=== PATIENT | female | born 1985 | race Caucasian/White ===

== ENCOUNTER 2019-05-13 00:13 | Outpatient (CLI) | payer MEDICAID ==
[~2019-05-13] VITALS: Ht 167.6 cm; Wt 102.1 kg
[2019-05-13 01:07] VITALS: Ht 167.6 cm; Wt 102.1 kg
[2019-05-13] MEDS ORDERED: ACET500T68 PO (01:12)
[2019-05-13] MEDS ORDERED: PREN-127 PO (01:12)
[2019-05-13] MEDS ORDERED: DIPH-741 PO (01:12)
[2019-05-13] MEDS ORDERED: NIFEdipine 10 MG CAP PO PRN (02:00)
== END 2019-05-13 02:03 | disposition home or self-care (01) ==
LOC: UNDOADMOB 00:13 → L&D 00:13 → OB 00:13 → L&D 02:03 → UNDODISOB 02:03 → EDSTATUS 05-14 19:57
PROVIDERS: ATTEND Obstetrics & Gynecology
DX: O46.93 Antepartum hemorrhage, unspecified, third trimester (principal); Z3A.33 33 weeks gestation of pregnancy
CPT/HCPCS: 99213; G0378; G0379

== ENCOUNTER 2019-06-04 04:36 | Inpatient (IN) | payer MEDICAID ==
[2019-06-04] VITALS (21 sets, daily range): BP systolic 101–119; BP diastolic 52–90; Ht 167.6 cm; Wt 101.2 kg
[~2019-06-04] VITALS: Ht 167.6 cm; Wt 101.2 kg
[~2019-06-04 04:36] MED LIST: ACET500T68 PO; DIPH-741 PO; PREN-127 PO
[2019-06-04] MEDS ORDERED: FAMOTIDINE 20 MG/50 ML PREMIX IVPB ONE (04:45)
[2019-06-04] MEDS ORDERED: cefOXitin/DEX(*) 2GM/50ML PREM 50 ML IVPB ONE (04:45)
[2019-06-04] MEDS ORDERED: ONDANSETRON 4 MG/2 ML VIAL ONE (05:24)
[2019-06-04] MEDS ORDERED: fentaNYL CITR 100 MCG/2 ML AMP ONE (05:24)
[2019-06-04] MEDS ORDERED: DEXAMETHASONE SOD 4 MG/ML VIAL ONE (05:24)
[2019-06-04] MEDS ORDERED: MORPHINE PF 5 MG/10 ML AMP ONE (05:24)
[2019-06-04] MEDS ORDERED: OXYTOCIN 10 UNIT/ML SDV ONE ×2 (05:24→07:33)
[2019-06-04] MEDS: LR(*) 1000 ML BAG 1,000 ML IV SCH ×3 (05:32→11:09)
--- NOTE | 2019-06-04 05:36 | Anesthesia OB Pre-Anes Eval ---
History of Present Illness Anesthesia Start Date: Jun 04, 2019 Anesthesia Start Time: 05:12 OB Anesthesia Diagnosis: primary c/section (for placenta previa), other Current Complication: obesity, other (, pre term labor received betamethasone, and procardia - last dose 06/03 at 2300) Complications: none known EDC: Jun 25, 2019 : 5 Para: 4 Vital Signs: Hematology Test 06/04/19 04:57 White Blood Count 9.8 k/uL (4.5-11.0) Red Blood Count 4.50 M/uL (4.17-5.56) Hemoglobin 14.0 g/dL (12.0-16.0) Hematocrit 40.3 % (34.0-47.0) Mean Corpuscular Volume 89.5 fL (80.0-96.0) Mean Corpuscular Hemoglobin 31.2 pg (26.0-33.0) Mean Corpuscular Hemoglobin Concent 34.8 g/dL (32.0-36.0) Red Cell Distribution Width 14.1 % (11.5-14.5) Platelet Count 191 K/uL (150-450) Mean Platelet Volume 8.9 fL (7.2-11.1) Neutrophils (%) (Auto) 68.3 % (39.4-72.5) Lymphocytes (%) (Auto) 20.2 % (17.6-49.6) Monocytes (%) (Auto) 10.2 % (4.1-12.4) Eosinophils (%) (Auto) 1.1 % (0.4-6.7) Basophils (%) (Auto) 0.2 % (0.3-1.4) L Nucleated RBC Relative Count (auto) 0.1 /100WBC Neutrophils # (Auto) 6.7 K/uL (2.0-7.4) Lymphocytes # (Auto) 2.0 K/uL (1.3-3.6) Monocytes # (Auto) 1.0 K/uL (0.3-1.0) Eosinophils # (Auto) 0.1 K/uL (0.0-0.5) Basophils # (Auto) 0.0 K/uL (0.0-0.1) Nucleated RBC Absolute Count (auto) 0.01 K/uL Serology Test 06/04/19 04:57 HIV (1&2) Antibody Negative (NEGATIVE) Epidural anesthesia risks, complications and benefits explained to patient's satisfaction for labor and vaginal delivery and/or section.122/77 76 17, 95% Pain Ratin (Not in labor) Heart Tones: 138 Height (Inches): 66 Weight (Pounds): 225 BMI (kg/m2): 36 Type and screen done GBS negative Past Medical History Medical History: obesity Surgical History: no surgical history Previous Anesthesia: epidural Attended Childbirth Classes?: No Hx Anesthesia Reactions: No Hx Family Anesthesia Reaction: No Home Meds Reported Medications Diphenhydramine Hcl (BENADRYL ALLERGY) 25 Mg Tablet, 25 MG PO Q6-8H, TAB 05/13/19 Acetaminophen (TYLENOL EXTRA STRENGTH) 500 Mg Tablet, 500 MG PO, TAB 05/13/19 Vits W-Ca,Fe,Fa(<1MG) ( VITAMINS) 1 Each Tablet, 1 EACH PO DAILY, TAB 05/13/19 Allergies: Coded Allergies: latex (Verified Allergy, Mild, hives, 06/04/19) Anesthesia OB ROS Neurological: No migraines/headaches, No seizures, No neuropathy, No other Eyes ROS: contacts out ENT: Loose teeth, Chipped teeth, Other (carious and many missing teeth) Pulmonary: smoker (pks/day/yrs) (1/2 ppd x 20 yrs.) Airway Class: ll Cardiovascular ROS: No edema, No arrhythmia, No other GI ROS: NPO Last Solids Date: Jun 03, 2019 Last Solids Time: 21:00 ROS: No Herpes, No STD(s), No Liver Disease, No Renal Disease, No Other Endocrine ROS: No diabetes, No gestational diabetes, No thyroid disorder, No o ther Musculoskeletal ROS: No low back pain, No low back injury, No scoliosis, No other ASA Classification: 2 Assessment and Plan Anesthesia Plan: SAB (with intrathecal narcotics) Assessment: Calm attentive female w German ZHENG, in room for counseling and consent. Questions entertained and answered. Signs of infection and post puncture headache and itching emphasized. KARLENE CARLSON CRNA Jun 04, 2019 05:36
[2019-06-04 05:52] LABS: PLATELET COUNT, AUTOMATED 191 K/uL (150-450)
[2019-06-04] MEDS ORDERED: NS(*) 0.9% 1000 ML BAG 1,000 ML ONE (06:47)
[2019-06-04] MEDS ORDERED: KETOROLAC 30 MG/ML VIAL ONE (07:13)
[2019-06-04] MEDS ORDERED: diphenhydrAMINE 50 MG/ML VIAL ONE (07:27)
[2019-06-04] MEDS ORDERED: MIDAZOLAM 2 MG/2 ML VIAL ONE (07:29)
[2019-06-04] MEDS ORDERED: OXYTOCIN 30 UNIT/NS 500 ML 500 ML IV PRN (08:29)
[2019-06-04] MEDS ORDERED: ACETAMINOPHEN 325 MG TAB PO PRN (08:30)
[2019-06-04] MEDS ORDERED: SIMETHICONE 80 MG CHEW CHEW PRN (08:30)
[2019-06-04] MEDS ORDERED: LANOLIN OINT 7 GM TUBE TP PRN (08:30)
[2019-06-04] MEDS ORDERED: INFLUENZA VIRUS VAC 0.5ML SYR IM ONE (08:30)
[2019-06-04] MEDS ORDERED: PROMETHAZINE 25 MG/ML 1 ML AMP IVP PRN (08:30)
[2019-06-04] MEDS ORDERED: ONDANSETRON 4 MG/2 ML VIAL IV PRN (08:30)
[2019-06-04] MEDS ORDERED: ZOLPIDEM TARTRATE 5 MG TAB PO PRN (08:30)
--- NOTE | 2019-06-04 08:43 | History & Physical ---
History of Present Illness Age of Patient: 33 : 5 Para or TPAL: 4 EDC per LMP: Jun 25, 2019 Estimated Gestational Age: 37.0 Chief Complaint History of Present Illness Presents at 37.0 weeks for scheduled due to anterior placenta previa. I have been following Jessica closely for anterior complete placenta previa discovered initially at her 20 week u/s and persisted through term. She had consultation with OBX who confirmed and steroids administered at 34 weeks. She didn't ever get bleeding prior to delivery. Plan made for delivery at 37 weeks. She is a smoker and has continued to smoke through . After arrival and while prepping pt reports her water broke and we confirmed bloody fluid. Past Medical, Surgical, Family and Obstetric Histories reviewed. Please see ACOG chart. History Allergies: Coded Allergies: latex (Verified Allergy, Mild, hives, 06/04/19) Med Rec Home Meds Reported Medications Diphenhydramine Hcl (BENADRYL ALLERGY) 25 Mg Tablet, 25 MG PO Q6-8H, TAB 05/13/19 Acetaminophen (TYLENOL EXTRA STRENGTH) 500 Mg Tablet, 500 MG PO, TAB 05/13/19 Vits W-Ca,Fe,Fa(<1MG) ( VITAMINS) 1 Each Tablet, 1 EACH PO DAILY, TAB 05/13/19 Review of Systems All Systems Reviewed/Normal: Yes, Except as Noted Exam General Exam Vital Signs Vital Signs Date Time Temp Pulse Resp B/P (MAP) Pulse Ox O2 Delivery O2 Flow Rate FiO2 06/04/19 05:00 97.8 66 16 117/55 (75) 95 Room Air General Apperance: Alert/Awake/No Acute Distress Neuro: No Gross deficits Cardiovascular: Regular Rate and Rhythm Respiratory: No Respiratory Distress Abdomen: Soft, Non-Tender, Non-Distended Integumentary: Skin Intact without Lesions or Rash Psychological: Alert & Oriented X3, Appropriate Mood & Affect Vaginal Discharge/Fluid?: Bloody Fluid Fetus Heart Tone Variabilty: Moderate FHT Accelerations: 15X15 FHT Category: I Medical Decision Making Data Points Result Diagram: 06/04/19 0457 VTE Prophylasis: Adult Deep Vein Thrombosis/Pulmonary: No Pharmacological Contraindicati: Pt at Low Risk for VTE Mechanical Contraindications: Pt at Low Risk for VTE Assessment and Plan Problems: (1) Tobacco smoking affecting in third trimester Assessment & Plan: Nicotine patch while inpt. (2) Placenta previa antepartum in third trimester Assessment & Plan: as planned. I presented immediately for earlier delivery. (3) 37 weeks gestation of ALFREDO QUEVEDO MD Jun 04, 2019 08:43
--- NOTE | 2019-06-04 08:53 | Post Operative Note ---
Operative Note - [facility] Operative Day Date: Jun 04, 2019 Time: 08:44 Physicians Surgeon: Lianne Anesthesia: Spinal Diagnosis Pre-Op Diagnosis: Anterior placenta previa 37 weeks smoker Post-Op Diagnosis: same Procedure Findings: rupured membranes Procedure(s): Primary LTCS Specimen Removed:(Maybe N/A): placenta Complications: blood loss [id number] Fluids Fluids: 3500 ml Estimated Blood Loss: 1500 ml Dictated Date OP Note Dictated: Jun 04, 2019 Time OP Note Dictated: 08:45 Copies to: ALFREDO QUEVEDO MD ; ALFREDO QEUVEDO MD Jun 04, 2019 08:53
[2019-06-04] MEDS: DLR(*) 1000 ML BAG 1,000 ML IV PRN ×2 (09:30→18:12)
[2019-06-04] MEDS ORDERED: fentaNYL CITR 100 MCG/2 ML AMP IT PRN (09:50)
[2019-06-04] MEDS ORDERED: FENTANYL/ROPIVACAINE 100 ML BAG EPI PRN (09:50)
[2019-06-04] MEDS ORDERED: NALOXONE HCL 0.4 MG/ML VIAL IV PRN (09:50)
[2019-06-04] MEDS ORDERED: NALBUPHINE HCL 10 MG/ML AMP IVP PRN (09:50)
[2019-06-04] MEDS ORDERED: BUPIVACAINE 0.25% MPF INJ EPI PRN (09:50)
[2019-06-04] MEDS ORDERED: diphenhydrAMINE 50 MG/ML VIAL IV PRN (09:50)
[2019-06-04] MEDS ORDERED: LIDO/EPI 2% MPF 1:200,000 20ML EPI PRN (09:50)
[2019-06-04] MEDS ORDERED: LIDOCAINE/PF 2% 200MG/10ML AMP 200 MG/10 ML AMPUL EPI PRN (09:50)
[2019-06-04] MEDS: NICOTINE 14 MG/24 HR PATCH TD SCH (10:12)
[2019-06-04] MEDS: FAMOTIDINE 20 MG TAB PO SCH ×2 (10:12→20:19)
[2019-06-04] MEDS: DOCUSATE CALCIUM 240 MG CAP PO SCH ×2 (10:12→20:20)
[2019-06-04] MEDS ORDERED: LR(*) 1000 ML BAG 1,000 ML IV PRN (11:00)
--- NOTE | 2019-06-04 12:37 | OPERATIVE REPORT 1 ---
EVENT DATE: June 04, 2019 SURGEON: Kelton Abdalla MD ANESTHESIOLOGIST: Stacie Fu CRNA ANESTHESIA: Spinal. PREOPERATIVE DIAGNOSES 1. 37-week intrauterine . 2. Complete anterior placenta previa. 3. Smoker during . POSTOPERATIVE DIAGNOSES 1. 37-week intrauterine . 2. Complete anterior placenta previa. 3. Smoker during . 4. Premature rupture of membranes. PROCEDURE PERFORMED Primary low transverse section via Pfannenstiel skin incision. ESTIMATED BLOOD LOSS 1500 cc. FLUIDS 3500 cc IV crystalloid. URINE OUTPUT Clear. INDICATIONS Jessica is in her fifth at 37 weeks. We have been following her closely for an anterior complete placenta previa confirmed via multiple ultrasound examinations, although she did not suffer any bleeding through the . She received steroids at 34 weeks and was scheduled for delivery at 37. She presented for delivery today as a scheduled section. While she was here in the hospital being prepped for surgery her membranes spontaneously ruptured with bloody fluid visible. We, therefore, proceeded more rapidly for her . DESCRIPTION OF PROCEDURE She was brought to the operating room with a working IV and placed in the dorsal supine position. After spinal anesthesia was placed, she was moved to a leftward tilt and prepped and draped in the usual sterile fashion. Using a knife, a Pfannenstiel skin incision was made and carried through to the underlying rectus fascia. This was nicked in the midline and extended laterally. Rectus muscles were in the midline and the abdominal cavity was entered sharply through the peritoneum. This was extended using blunt lateral traction and a bladder blade was inserted. Attempts were initially made for elevating the vesicouterine peritoneum and creating a bladder flap but the lower uterine segment had not developed very well, mostly because of this thickened anterior wall due to the placenta. I, therefore, decided just to make an incision straight from there without dissecting down the bladder as I was palpably well above the bladder. Using a knife, a low transverse incision was made on the lower uterine segment and extended until I was intrauterine, first encountering the placenta. Therefore, I rapidly extended the incision laterally. A hand was inserted and the placenta was already detaching. It was pushed aside until I was able to palpate the membranes, which I then ruptured with a hemostat. I could then grab the 's head while fundal pressure was applied. The 's head delivered atraumatically. There was a nuchal cord x1. Further fundal pressure affected delivery the remainder of the and I rapidly clamped and cut the cord so as not to persist with blood loss. The was quickly resuscitated and handed off the waiting resuscitation team. Apgars were 9 and 9. Weight was 2860 grams. The placenta was now mostly delivered secondary to the above. Therefore, it was completely removed. The uterus was exteriorized and cleared of clots and debris. The lower uterine segment had some significant bleeding, mostly from the angles which had extended into the uterine vessels bilaterally. Barron clamps were placed to control bleeding while the uterine repair was performed, initially with #1 Monocryl, first ligating the uterine vasculature and then doing a running locking stitch to the contralateral side. I tied off this stitch a little early due to the bleeding on this side and performed an [place] stitch through the uterine vasculature by driving the needle anteriorly through the uterus posteriorly and then back through the broad ligament and circling the uterine vasculature. Tying this down helped control the bleeding significantly. The remaining uterine closure was completed on the right side and was hemostatic. Therefore, a second stitch was used to imbricate the first layer, completing the two-layer closure. This continued to remain hemostatic. Therefore, the posterior cul-de-sac was irrigated and suctioned dry. The uterus was returned to the abdomen and bilateral pelvic gutters were irrigated and sucked clear of clots and debris. The incision was again inspected in situ and found to be hemostatic. Therefore, the parietal peritoneum was repaired using 3-0 Vicryl in a running nonlocking stitch. Rectus muscles were reapproximated in the midline with the same stitch. Muscle bellies were irrigated and capillary bleeders were cauterized. The rectus fascia was repaired using 0 Vicryl in a running nonlocking stitch. Subcuticular space irrigated, sucked clear of clots and debris. space was closed with 3-0 Vicryl Plus in a running nonlocking stitch. Skin was repaired with 4-0 Monocryl simple subdermal and covered with Dermabond skin adhesive. She tolerated the procedure well. Blood loss was approximately double of what is typical, although I do not believe she would end up into transfusion range. There are four units of packed red blood cells typed and crossmatched for this patient if she needs it. We will monitor closely. Sponge, lap, needle and instrument counts were all correct x3. She was taken to recovery in stable condition. PETER
[2019-06-04 12:43] LABS: PLATELET COUNT, AUTOMATED 207 K/uL (150-450)
[2019-06-04] MEDS ORDERED: FUROSEMIDE 20 MG/2 ML VIAL IVP ONE (13:15)
[2019-06-04] MEDS: oxyCODON/ACET (*)5/325MG (CII) 1 TAB TAB PO PRN ×3 (13:36→23:19)
[2019-06-04] MEDS ORDERED: KETOROLAC 30 MG/ML VIAL IVP SCH (14:00)
[2019-06-05 03:00] VITALS: BP 121/79
[2019-06-05 06:30] LABS: PLATELET COUNT, AUTOMATED 175 K/uL (150-450)
[2019-06-05] MEDS: oxyCODON/ACET (*)5/325MG (CII) 1 TAB TAB PO PRN ×4 (06:41→18:17)
[2019-06-05 07:45] VITALS: BP 129/72
[2019-06-05] MEDS ORDERED: IBUPROFEN 800 MG TAB PO SCH (08:00)
[2019-06-05] MEDS: DOCUSATE CALCIUM 240 MG CAP PO SCH ×2 (08:03→20:51)
[2019-06-05] MEDS: FAMOTIDINE 20 MG TAB PO SCH ×2 (08:03→20:51)
[2019-06-05] MEDS: NICOTINE 14 MG/24 HR PATCH TD SCH (08:05)
--- NOTE | 2019-06-05 10:57 | OB/GYN Progress Note ---
OB Subjective Progress Notes Subjective Doing well. Pain well controlled and urine UO improved after Lasix and is now diuresing. Ambulating and voiding spontaneously now. Has been out to smoke. No excessive anemia or symptoms of. GI: NEG Nausea : Voiding Well Pain: Mild OB Objective Physical Exam Vital Signs Date Time Temp Pulse Resp B/P (MAP) Pulse Ox O2 Delivery O2 Flow Rate FiO2 06/05/19 07:45 96.8 65 16 129/72 (91) 92 Room Air 06/05/19 03:00 1.0 Intake and Output 06/05/19 07:03 Intake Total 4140 ml Output Total 3895 ml Balance 245 ml Intake Oral 2290 ml IV Total 1850 ml Output Urine Total 3895 ml General Appearance: Alert/Awake/No Acute Distress Neurological: No Gross deficits Cardiovascular: Normal Rhythm & Peripheral Pulses, Regular Rate and Rhythm Respiratory: No Respiratory Distress, Clear to Auscultation Abdomen: Soft, Non-Tender, Non-Distended Incision: Clean, Dry, Intact, Dermabond Integumentary: Skin Intact without Lesions or Rash Psychological: Alert & Oriented X3, Appropriate Mood & Affect Result Diagram: 06/05/19 0610 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 (2) Placenta previa antepartum in third trimester Assessment & Plan: Resolved with delivery. Bleeding light. (3) 37 weeks gestation of (4) Other specified aftercare following surgery Assessment & Plan: Routine care today. Resume Motrin and should continue to improve. Home tomorrow. F/U with me in 2 weeks for postoperative check. ALFREDO QUEVEDO MD Jun 05, 2019 10:57
[2019-06-05] MEDS ORDERED: DOCU240C67 PO (10:59)
[2019-06-05] MEDS ORDERED: PER PO (10:59)
[2019-06-05] MEDS ORDERED: IBUP800T37 PO (10:59)
[2019-06-05 11:00] VITALS: BP 121/67
[2019-06-05] MEDS: IBUPROFEN 800 MG TAB PO PRN ×2 (11:04→18:38)
[2019-06-05 15:15] VITALS: BP 122/74
--- NOTE | 2019-06-05 18:40 | Anesthesia Post Eval Note ---
Anesthesia Post Eval Note Vital Signs Date Time Temp Pulse Resp B/P (MAP) Pulse Ox O2 Delivery O2 Flow Rate FiO2 06/05/19 15:15 97.6 64 16 122/74 (90) 93 Room Air 06/05/19 03:00 1.0 Hematology Test 06/04/19 12:33 06/05/19 06:10 Neutrophils % (Manual) 88 % (39.4-72.5) H Lymphocytes % (Manual) 12 % (17.6-49.6) L Monocytes % (Manual) 0 % (4.1-12.4) L Eosinophils % (Manual) 0 % (0.4-6.7) L Basophils % (Manual) 0 % (0.3-1.4) L White Blood Count 14.3 k/uL (4.5-11.0) H Red Blood Count 3.49 M/uL (4.17-5.56) L Hemoglobin 10.7 g/dL (12.0-16.0) L Hematocrit 31.3 % (34.0-47.0) L Mean Corpuscular Volume 89.7 fL (80.0-96.0) Mean Corpuscular Hemoglobin 30.6 pg (26.0-33.0) Mean Corpuscular Hemoglobin Concent 34.1 g/dL (32.0-36.0) Red Cell Distribution Width 14.2 % (11.5-14.5) Platelet Count 175 K/uL (150-450) Mean Platelet Volume 8.5 fL (7.2-11.1) Neutrophils (%) (Auto) 73.4 % (39.4-72.5) H Lymphocytes (%) (Auto) 17.0 % (17.6-49.6) L Monocytes (%) (Auto) 8.6 % (4.1-12.4) Eosinophils (%) (Auto) 0.7 % (0.4-6.7) Basophils (%) (Auto) 0.3 % (0.3-1.4) Nucleated RBC Relative Count (auto) 0.1 /100WBC Neutrophils # (Auto) 10.5 K/uL (2.0-7.4) H Lymphocytes # (Auto) 2.4 K/uL (1.3-3.6) Monocytes # (Auto) 1.2 K/uL (0.3-1.0) H Eosinophils # (Auto) 0.1 K/uL (0.0-0.5) Basophils # (Auto) 0.0 K/uL (0.0-0.1) Nucleated RBC Absolute Count (auto) 0.01 K/uL Serology Test 06/04/19 04:57 HIV (1&2) Antibody Negative (NEGATIVE) Tolerated procedure well without apparent anesthetic complications. LP site clear, no redness or edema. Denies headache or any residual paresthesia. Vital Signs Stable, Patient comfortable and condition stable.Signs of infection and post dural punture LOYD reviewed. Pt agrees to seek medical intervention should these occur. Pt able to participate in Eval: Yes Cardiovascular Status: Satisfactory Respiratory Status: Satisfactory Pain Managment: Satisfactory PO Nausea/Vomiting: Satisfactory Temperature Management: Satisfactory Mental Status: Satisfactory, Alert, Oriented X3 Post-Op Hydration Status: Satisfactory, Tolerating PO Well, Voiding w/o Difficulty Anesthesia Type: KARLENE STEPHENS CRNA Jun 05, 2019 18:40
[2019-06-05 19:20] VITALS: BP 127/84
[2019-06-05 23:00] VITALS: BP 115/53
[2019-06-06] MEDS: oxyCODON/ACET (*)5/325MG (CII) 1 TAB TAB PO PRN ×4 (00:29→14:54)
[2019-06-06 03:45] VITALS: BP 116/72
[2019-06-06] MEDS: IBUPROFEN 800 MG TAB PO PRN ×2 (04:00→13:33)
[2019-06-06] MEDS ORDERED: DIPHTH/TETANUS/ACEL. PERTUSSIS IM ONLY ONE (08:30)
[2019-06-06] MEDS ORDERED: MEASLES,MUMP,RUBELLA VAC 0.5ML SUBQ ONE (08:30)
[2019-06-06 08:45] VITALS: BP 116/72
[2019-06-06] MEDS: FAMOTIDINE 20 MG TAB PO SCH (09:29)
[2019-06-06] MEDS: DOCUSATE CALCIUM 240 MG CAP PO SCH (09:29)
[2019-06-06] MEDS: NICOTINE 14 MG/24 HR PATCH TD SCH (09:29)
--- NOTE | 2019-06-06 12:27 | OB/GYN Discharge Summary ---
ALFREDO ABDALLA MD 06/05/19 1100: Discharge Summary Reason for Hosp/Final Diag: (1) Tobacco smoking affecting in third trimester Hospital Course & Plan: Encouraged cessation and offered medical assistance. (2) Placenta previa antepartum in third trimester Hospital Course & Plan: Resolved with delivery. Bleeding light. (3) 37 weeks gestation of (4) Other specified aftercare following surgery Hospital Course & Plan: Routine care today. Resume Motrin and should continue to improve. Home tomorrow. F/U with me in 2 weeks for postoperative check. Lates Vital Signs Vital Signs Date Time Temp Pulse Resp B/P (MAP) Pulse Ox O2 Delivery O2 Flow Rate FiO2 06/05/19 07:45 96.8 65 16 129/72 (91) 92 Room Air 06/05/19 03:00 1.0 Weight (Pounds): 223 Result Diagram: 06/05/1910 Condition: Improved Discharge: Home, Self [facility] Meds Active Scripts Docusate Calcium (DOCUSATE CALCIUM) 240 Mg Capsule, 240 MG PO BID, #20 CAPSULE 0 Refills Prov:ALFREDO ABDALLA MD 06/05/19 Oxycodone/Acetaminophen (OXYCODONE/ACETAMINOPHEN 5MG/325 MG) 5 Mg/325 Mg Tab, 1- 2 TAB PO Q4H PRN for PAIN, #30 TAB 0 Refills Prov:ALFREDO ABDALLA MD 06/05/19 Ibuprofen (IBUPROFEN) 800 Mg Tablet, 800 MG PO Q8H PRN for PAIN, #30 TAB 0 Refills Prov:ALFREDO ABDALLA MD 06/05/19 Reported Medications Diphenhydramine Hcl (BENADRYL ALLERGY) 25 Mg Tablet, 25 MG PO Q6-8H, TAB 05/13/19 Acetaminophen (TYLENOL EXTRA STRENGTH) 500 Mg Tablet, 500 MG PO, TAB 05/13/19 Vits W-Ca,Fe,Fa(<1MG) ( VITAMINS) 1 Each Tablet, 1 EACH PO DAILY, TAB 05/13/19 Follow up Referrals: DIRECTOR OF CLINICAL TRIALS - In Two Weeks @ [facility] with ALFERDO ABDALLA MD Follow up with: Dr. Abdalla [phone] Follow up in: 6 wks PP or PO, 2 wks PO Discharge Diet: As Tolerates Discharge Activity: As Tolerates, No Heavy Lifting x 6 wks, No Heavy Lifting > 10lb, Pelvic Rest Copies to: ALFREDO ABDALLA MD ; MARK PECK DO 06/06/19 1227: Discharge Summary Reason for Hosp/Final Diag: (1) delivery delivered Result Diagram: 06/05/19 0610 Condition: Improved Discharge: Home, Self [facility] Meds Active Scripts Docusate Calcium (DOCUSATE CALCIUM) 240 Mg Capsule, 240 MG PO BID, #20 CAPSULE 0 Refills Prov:ALRFEDO ABDALLA MD 06/05/19 Oxycodone/Acetaminophen (OXYCODONE/ACETAMINOPHEN 5MG/325 MG) 5 Mg/325 Mg Tab, 1- 2 TAB PO Q4H PRN for PAIN, #30 TAB 0 Refills Prov:ALFREDO ABDALLA MD 06/05/19 Ibuprofen (IBUPROFEN) 800 Mg Tablet, 800 MG PO Q8H PRN for PAIN, #30 TAB 0 Refills Prov:ALFREDO ABDALLA MD 06/05/19 Reported Medications Diphenhydramine Hcl (BENADRYL ALLERGY) 25 Mg Tablet, 25 MG PO Q6-8H, TAB 05/13/19 Acetaminophen (TYLENOL EXTRA STRENGTH) 500 Mg Tablet, 500 MG PO, TAB 05/13/19 Vits W-Ca,Fe,Fa(<1MG) ( VITAMINS) 1 Each Tablet, 1 EACH PO DAILY, TAB 05/13/19 Follow up Referrals: DIRECTOR OF CLINICAL TRIALS - In Two Weeks @ [facility] with ALFREDO ABDALLA MD Follow up with: Dr. Abdalla [phone] (2 weeks ) Follow up in: 2 wks PO Discharge Diet: As Tolerates Discharge Activity: As Tolerates, No Heavy Lifting x 6 wks, Pelvic Rest (no sex, tampons or douching for 6 weeks. ) Copies to: ALFREDO ABDALLA MD ; ALFREDO ABDALLA MD Jun 05, 2019 11:00 MARK PECK DO Jun 06, 2019 12:27
--- NOTE | 2019-06-06 12:34 | OB/GYN Progress Note ---
OB Subjective Progress Notes Subjective Pt doing well. Pain well controlled. She is ambulating and voiding on her own. She reports passing gas and tolerating a general diet. She states vaginal bleeding is light and improving. She is bonding well with baby. GI: POS Flatus; NEG Nausea, NEG Vomiting : Voiding Well, Vaginal Bleeding, Scant Pain: Mild Neurological: No Headache OB Objective Physical Exam Vital Signs Date Time Temp Pulse Resp B/P (MAP) Pulse Ox O2 Delivery O2 Flow Rate FiO2 06/06/19 08:45 Room Air 06/06/19 08:45 97.6 70 18 116/72 (87) 06/06/19 03:45 92 06/05/19 03:00 1.0 Intake and Output 06/06/19 07:03 Intake Total 1480 ml Output Total 1200 ml Balance 280 ml Intake Oral 1480 ml Output Urine Total 1200 ml # Voids 1 General Appearance: Alert/Awake/No Acute Distress Neurological: No Gross deficits Cardiovascular: Normal Rhythm & Peripheral Pulses, Regular Rate and Rhythm Respiratory: No Respiratory Distress, Clear to Auscultation Abdomen: Soft, Non-Tender, Non-Distended, Bowel Sounds Present, Fundus Firm, Non-Tender Incision: Clean, Dry, Intact, Dermabond Integumentary: Skin Intact without Lesions or Rash Psychological: Alert & Oriented X3, Appropriate Mood & Affect Result Diagram: 06/05/19 0610 Assessment and 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 Follow up with Dr. Abdalla in two weeks. Last Edited By: Christel Haider on Jun 06, 2019 12:34 Status: Resolved CHRISTEL HAIDER DO Jun 06, 2019 12:34
== END 2019-06-06 16:45 | disposition home or self-care (01) | DRG 788 ==
LOC: OB 04:36 → OBSVTOIN 04:36
PROVIDERS: ADMIT Obstetrics & Gynecology; ATTEND Obstetrics & Gynecology
PROC: 10D00Z1 Extraction of Products of Conception, Low, Open Approach (ICD-10-PCS; principal; 2019-06-04 07:10)
DX: O69.4XX0 Labor and delivery complicated by vasa previa, not applicable or unspecified (principal); O99.334 Smoking (tobacco) complicating childbirth; F17.210 Nicotine dependence, cigarettes, uncomplicated; O69.81X0 Labor and delivery complicated by cord around neck, without compression, not applicable or unspecified; O42.02 Full-term premature rupture of membranes, onset of labor within 24 hours of rupture; Z3A.37 37 weeks gestation of pregnancy; Z37.0 Single live birth; Z91.040 Latex allergy status
CPT/HCPCS: 36415; 85007; 85014; 85018; 85025; 85027; 86703; 86850; 86900; 86901; J0694; J1100; J1200; J1885; J1940; J2250; J2270; J2405; J2590; J3010; J7120